=== PATIENT | male | born 1945 | race African-American/Black ===

== ENCOUNTER 2019-07-10 10:48 | Outpatient (CLI) | payer MEDICARE, OTHER, SELFPAY ==
--- NOTE | ~2019-07-10 | XR_ITS ---
MODIFIED ESOPHAGRAM HISTORY: Dysphagia. TECHNIQUE: Modified barium esophagram was performed on 07/10/2019. I administered fluoroscopy and perf ormed the exam with speech pathologist. Patient was seated for lateral fluoroscopic imaging for alondra stion of thin liquids, pudding, solids and quantified amounts, followed by thin liquids an uncontroll ed amounts. This was recorded on tape. A single fluoroscopic spot image was also recorded. The DAP fo r this procedure was 3.5 Gycm2. The amount of fluoroscopy time used during this procedure was 3.6 min utes. FINDINGS: Oral stage: Premature spillage into the pharynx.. Pharyngeal stage: Laryngeal penetration with aspiration as with thin nectar thick liquids which was s ilent. Vallecular residue. Cervical/esophageal stage: Adequate function. IMPRESSION: Oral pharyngeal dysphagia with penetration and aspiration with thin and nectar thick liqu ids. Please correlate with speech pathologist findings and specific feeding recommendations. Reviewed, dictated and finalized at location A. HEAD DUMPER IMPRESSION: Oral pharyngeal dysphagia with penetration and aspiration with thin and nectar thick liquids. Please correlate with speech pathologist findings a nd specific feeding recommendations.
--- NOTE | 2019-07-11 08:02 | STOPEVAL ---
MODIFIED BARIUM SWALLOW EVALUATION: Thank you for referring this patient to [facility]. Admitting Provider: Attending Provider: Servando Larson MD Referring Provider: KATY Outpatient Evaluation Start: 07/10/19 17:54 Freq: Status: Active Protocol: Document 07/10/19 11:00 BECHERERT (Rec: 07/10/19 17:55 BECHERERT [email or web address]) Therapy Assessment Status Assessment Status Assessment Status Evaluation Outpatient Past Medical History Neurological History Hx Cerebrovascular Accident (CVA) Yes Hx Seizures Yes Cardiovascular History Hx Hypercholesterolemia Yes Hx Hypertension Yes Respiratory History Hx Respiratory Disorders No Significant History Gastrointestinal History Hx Gastroesophageal Reflux Disease Yes Hx Gastrointestinal Bleed Yes Genitourinary History Hx Genitourinary Disorders No Significant History Musculoskeletal History Hx Arthritis Yes Hematological History Hx Hematological Disorders No Significant History Endocrine History Hx Endocrine Disorders No Significant History HEENT History Hx HEENT Disorders No Significant History Integumentary History Hx Skin Disorders No Significant History Reproductive History Hx Reproductive Disorders No Significant History Psychosocial History Hx Psychiatric Disorders No Significant History Pain History History of Any Previous or Ongoing No Significant History Instance of Pain Anesthesia History Hx Anesthesia Reactions No Significant History Pain Assessment Timing of Pain Assessment Timing of Pain Assessment Assessment Pain Scale Pain Scale Used Veronica (FACES) Veronica Kaur-Dulce Pain Scale No Pain Pain Score Pain Score No Pain: Vincent Cardona Modified Barium Swallow Evaluation Recent Swallowing History Reports Dysphagia Yes Onset of Dysphagia after CVA's and subsequent seizures History of Related Medical Diagnosis CVA History of Pneumonia No: per pt spouse Reported Difficult Consistencies Thin Liquids Intake Method Prior to Swallow Oral Evaluation Diet Prior to Swallow Evaluation Minced and Moist, Level 5 Liquid Consistency Prior to Swallow Mildly Thick (2) Evaluation Consistency Moderately Thick 5 mL Method of Presentation Spoon Oral Preparatory Symptoms Within Functional Limits Oral Phase Symptoms Within Functional Limits Pharyngeal Phase Symptoms Laryngeal Penetration,Reduced Laryngeal Elevation Severity of Vallecular Residue None - 0% No Residue Severity of Pyriform Sinus Residue None - 0% No Residue 8 Point Laryngeal Penetration-Aspiration Material Enters Airway, Scale Contacts Vocal Folds and i
== END 2019-07-10 10:49 | disposition home or self-care (01) ==
PROVIDERS: PCP Internal Medicine; Visit Provider Psychiatry & Neurology Neurology
DX: R13.10 Dysphagia, unspecified (principal)
CPT/HCPCS: 92611

== ENCOUNTER 2021-12-24 07:35 | Outpatient (CLI) | payer MEDICARE, OTHER, SELFPAY ==
--- NOTE | ~2021-12-24 | XR_ITS ---
EXAMINATION: XR barium swallow modified DATE: 12/24/2021 08:36 INDICATION: Dysphagia. TECHNIQUE: The patient was given barium-containing material of multiple consistencies to swallow by t he speech pathologist while I performed fluoroscopy. Fluoroscopy exposure time was 2.4 minutes. The n umber of fluoroscopy images saved to the PACS was 1. Dose-area product was 1.84 Gy-cm^2. FINDINGS: There is a reduced laryngeal elevation and reduced tongue base retraction. There is vallecular residu e and piriform sinus residue. There is laryngeal penetration and aspiration with thin liquids and nec tar thick liquids. IMPRESSION: 1. Laryngeal penetration and aspiration with thin liquids and nectar thick liquids. 2. Please refer to the speech therapy report for recommendations. Reviewed, dictated and finalized at location A. IMPRESSION: 1. Laryngeal penetration and aspiration with thin liquids and nectar thick liqu ids. 2. Please refer to the speech therapy report for recommendations.
--- NOTE | 2021-12-24 09:18 | STOPEVAL ---
MODIFIED BARIUM SWALLOW STUDY Thank you for referring Kendrick Dominguez to [facility].? I agree with and certify that the following plan of care is medically necessary. Referring Physician Date Attending Provider: Constantino Loya DO Therapy Assessment Status Assessment Status Assessment Status Evaluation Outpatient Past Medical History Neurological History Hx Cerebrovascular Accident (CVA) Yes Hx Seizures Yes Cardiovascular History Hx Hypercholesterolemia Yes Hx Hypertension Yes Gastrointestinal History Hx Gastroesophageal Reflux Disease Yes Hx Gastrointestinal Bleed Yes Musculoskeletal History Hx Arthritis Yes Pain Assessment Timing of Pain Assessment Timing of Pain Assessment Assessment Self Report Self Report Pain Level 0 Pain Score Pain Score 0: Self Report Modified Barium Swallow Evaluation Consistency Mixed Consistency 5 mL Other Amount Several pieces of fruit cocktail coated with the pudding mixture Method of Presentation Spoon Oral Preparatory Symptoms Within Functional Limits Oral Phase Symptoms Reduced A-P Lingual Movement, Slow Oral Transit Pharyngeal Phase Symptoms Residue in Valleculae,Residue/ Pyriform Sinus Severity of Vallecular Residue Moderate - 25-50 % Epiglottic Ligament Covered Severity of Pyriform Sinus Residue Moderate - 25-50 % Up Wall to Half Full 8 Point Laryngeal Penetration-Aspiration Material Does Not Enter Airway Scale Cervical/Esophageal Symptoms Within Functional Limits Solid Consistency 5 mL Other Amount Cracker coated with pudding consistency Method of Presentation Spoon Oral Preparatory Symptoms Within Functional Limits Oral Phase Symptoms Reduced A-P Lingual Movement, Slow Oral Transit Pharyngeal Phase Symptoms Residue in Valleculae,Residue/ Pyriform Sinus Severity of Vallecular Residue Moderate - 25-50 % Epiglottic Ligament Covered Severity of Pyriform Sinus Residue Moderate - 25-50 % Up Wall to Half Full 8 Point Laryngeal Penetration-Aspiration Material Does Not Enter Airway Scale Cervical/Esophageal Symptoms Within Functional Limits Pureed Consistency 3 mL Method of Presentation Spoon Oral Preparatory Symptoms Within Functional Limits Oral Phase Symptoms Reduced A-P Lingual Movement, Slow Oral Transit Pharyngeal Phase Symptoms Residue in Vallec
[2021-12-24 10:13] LABS: Alanine Aminotransferase 23 U/L (6-50); Albumin Level 4.1 g/dL (3.5-5.1); Alkaline Phosphatase 137 U/L (38-126); Anion Gap 12 mmol/L (8-16); Aspartate Amino Transferase 21 U/L (17-59); Bilirubin,Total 0.4 mg/dL (0.2-1.3); Blood Urea Nitrogen 10 mg/dL (9-20); Calcium 9.2 mg/dL (8.4-10.2); Carbon Dioxide 26 mmol/L (22-30); Chloride 104 mmol/L (98-107); Estimated Glomerular Filt Rate > 60; Glucose 126 mg/dL (65-110); Potassium 2.8 mmol/L (3.4-5.0); Sodium 142 mmol/L (137-145)
== END 2021-12-24 07:36 | disposition home or self-care (01) ==
LOC: ANHIMG 07:40
PROVIDERS: PCP Internal Medicine; Visit Provider Internal Medicine
DX: F39 Unspecified mood [affective] disorder (principal); G40.901 Epilepsy, unspecified, not intractable, with status epilepticus; I63.9 Cerebral infarction, unspecified; E55.9 Vitamin D deficiency, unspecified
CPT/HCPCS: 36415; 80053; 92611

== ENCOUNTER 2022-01-16 12:15 | Outpatient (CLI) | payer MEDICARE, OTHER, SELFPAY ==
--- NOTE | ~2022-01-16 | XR_ITS ---
EXAMINATION: XR abdomen obstructive series DATE: 01/16/2022 13:02 INDICATION: Abdominal distention TECHNIQUE: Upright and supine views of the abdomen were obtained. COMPARISON: None. FINDINGS: There is a large volume of stool in the distal colon. There is moderate distention of the p roximal colon. No free intraperitoneal gas is identified. There is a small left pleural effusion. 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 IMPRESSION: 1. Constipation with distended colon. No free intraperitoneal gas identified. Reviewed, dictated and finalized at location A.
== END 2022-01-16 12:16 | disposition home or self-care (01) ==
PROVIDERS: PCP Internal Medicine; Visit Provider Nurse Practitioner
DX: R14.0 Abdominal distension (gaseous) (principal); K59.00 Constipation, unspecified
CPT/HCPCS: 74019

== ENCOUNTER 2022-09-26 13:19 | Emergency (ER) | payer MEDICARE, OTHER, SELFPAY ==
[2022-09-26 13:18] VITALS: BP 141/71; PULSE 64; RESP 18; TEMP 36.6; O2SAT 100
[2022-09-26 14:14] LABS: Basophils Absolute Auto 0.1 K/mm3 (0.0-0.1); Basophils Percent Auto 1.1 % (0.2-1.2); Eosinophils Absolute Auto 0.2 K/mm3 (0-0.3); Eosinophils Percent Auto 3.7 % (0-4.4); Hemoglobin 12.3 g/dL (14.0-18.0); Immature Granulocyte Absolute 0.02 K/mm3 (0.00-0.031); Immature Granulocyte Percent A 0.3 % (0-0.5); Lymphocytes Absolute Auto 2.26 K/mm3 (0.9-3.2); Lymphocytes Percent Auto 36.8 % (18.3-44.2); Mean Corpuscular HGB Conc 32.4 g/dl (32-36); Mean Corpuscular Hemoglobin 29.3 pg (26-34); Mean Corpuscular Volume 90.5 fl (80-100); Mean Platelet Volume 8.8 fl (7.4-10.4); Monocytes Absolute Auto 0.7 K/mm3 (0.1-0.6); Monocytes Percent Auto 10.6 % (2.6-8.5); Neutrophils Absolute Auto 2.9 K/mm3 (1.3-6.7); Neutrophils Percent Auto 47.5 % (45.5-73.1); Platelet Count Result 453 k/mm3 (150-375); Red Cell Distribution Width 14.6 % (11.5-14.5); White Blood Count 6.1 K/mm3 (4.5-10.0)
--- NOTE | 2022-09-26 14:15 | PC.NURSE ---
Wounds to bilateral groins and coccyx cleansed with wound vat cleaner.
[2022-09-26 14:32] LABS: Alanine Aminotransferase 22 U/L (6-50); Albumin Level 3.7 g/dL (3.5-5.1); Alkaline Phosphatase 104 U/L (38-126); Anion Gap 8 mmol/L (8-16); Aspartate Amino Transferase 29 U/L (17-59); Bilirubin,Total 0.4 mg/dL (0.2-1.3); Blood Urea Nitrogen 10 mg/dL (9-20); Calcium 8.4 mg/dL (8.4-10.2); Carbon Dioxide 30 mmol/L (22-30); Chloride 103 mmol/L (98-107); Estimated CRCL calculation 72 ml/min; Estimated Glomerular Filt Rate > 60; Glucose 105 mg/dL (65-110); Potassium 2.8 mmol/L (3.4-5.0); Sodium 141 mmol/L (137-145)
[2022-09-26] MEDS: POTASSIUM CHLORIDE 20 MEQ PACKET (FOR LIQUID) 40 MEQ PO ×2 (14:42→16:41)
--- NOTE | 2022-09-26 16:29 | ED.GENADULT ---
HPI - General Adult General Chief complaint: Unspecified Stated complaint: sores to groin area Time Seen by Provider: 09/26/22 13:21 History of Present Illness HPI narrative: Patient is a 77-year-old male who presents ER for evaluation of skin in his pelvic region. Patient has had a stroke and is bedbound. He lives at home with his diaper often will void and family will clean him up. They use a fan to try to keep him dry. Patient had some infection several weeks ago while hospitalized at [facility] and since then family has been caring for him. They have been using [employer]de[employer]'s Butt paste as well as a monkey powder and occasional baking soda water cleanses. There is post have home health set up in the next week through the PCP but came here to make sure there is not something more serious occurring. There is no other complaints at this time. Patient has been without fevers. History obtained from . Related Data Home Medications Medication Instructions Recorded Confirmed aspirin 81 mg chewable tablet 81 mg PO DAILY 05/08/19 07/13/22 polyethylene glycol 3350 17 17 gm PO DAILY 11/06/19 07/13/22 gram/dose oral powder (Miralax) Allergies Allergy/AdvReac Type Severity Reaction Status Date / Time pravastatin Allergy Severe LEG Verified 09/24/22 15:50 SWELLING lisinopril Allergy Intermediate angioedema Verified 09/24/22 15:50 Review of Systems Review of Systems: ROS unobtainable: Yes unobtainable due to medical condition PMFSH Past Medical History Medical History Arthritis CVA (cerebral vascular accident) X2 in 2017. Residual aphasia and right hemiplegia. Patient is able to feed himself but otherwise requires total care, including a Mariama lift at home. 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 Christianson. Renal disease Seizures Developed after his strokes. Surgical History Surgical History History of inguinal hernia repair Right inguinal herniorrhaphy September 2016. History of nephrectomy Partial right nephrectomy for papillary renal cell carcinoma March 14, 2018. Status post trigger finger release Right 3rd finger. Family History Family History Other Unknown family medical history Social History Social History Social History: The patient lives with his and 2 children in [place]. 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 His is his surrogate decision maker and he is listed as a full code. He retired after being in the [employer] for 27 years. He worked in security thereafter. Smoking status: Never smoker Second hand tobacco smoke exposure: No Alcohol intake: never Substance use: never Substance use type: does not use Spiritual care concerns: No Exam Narrative: GENERAL: Chronically ill-appearing, well-nourished, and in no acute distress. HEAD: Normocephalic, atraumatic. ENT: Mucous membranes moist. CHEST: Clear to auscultation. No respiratory distress. HEART: Regular rate and rhythm. Normal peripheral pulses. EXTREMITIES: Right hemiplegia, no deformity. SKIN: Warm, dry. Thickening of the skin in the inguinal creases consistent with chronic dermatitis and there is some small less than dime sized pink ulcerations that do not appear to be infected. No cellulitis. There is a lot of caked powder to this region as well as to the patient's back where he may have some additional seborrheic dermatitis plaques on the left side. NEURO: Awake and alert, at neurologic baseline, says yes and no. Course Course Emergency
[2022-09-26 16:58] VITALS: BP 146/67; PULSE 73; RESP 14; O2SAT 100
--- NOTE | 2022-09-26 17:47 | PC.NURSE ---
[facility] Private residence transport [id number] Declined-No Truck 17[address] [facility] Declined - No Truck [address] [facility] Ems accepted ETA 21p Trip#[id number]
== END 2022-09-26 19:25 | disposition home or self-care (01) ==
PROVIDERS: Emergency Provider Emergency Medicine; PCP Family Medicine
DX: L30.9 Dermatitis, unspecified (principal); E87.6 Hypokalemia; I69.920 Aphasia following unspecified cerebrovascular disease; I69.951 Hemiplegia and hemiparesis following unspecified cerebrovascular disease affecting right dominant side; E78.00 Pure hypercholesterolemia, unspecified; I10 Essential (primary) hypertension; N28.9 Disorder of kidney and ureter, unspecified; G47.33 Obstructive sleep apnea (adult) (pediatric); H40.9 Unspecified glaucoma; K21.9 Gastro-esophageal reflux disease without esophagitis; M19.90 Unspecified osteoarthritis, unspecified site; Z85.528 Personal history of other malignant neoplasm of kidney; Z87.442 Personal history of urinary calculi; Z90.5 Acquired absence of kidney; Z79.82 Long term (current) use of aspirin
CPT/HCPCS: 36415; 80053; 85025; 99283; A9270

== ENCOUNTER 2022-10-12 10:37 | Outpatient (NON) | payer MEDICARE, OTHER, SELFPAY ==
[2022-10-12 10:53] LABS: Basophils Absolute Auto 0.1 K/mm3 (0.0-0.1); Basophils Percent Auto 1.3 % (0.2-1.2); Eosinophils Absolute Auto 0.3 K/mm3 (0-0.3); Eosinophils Percent Auto 4.5 % (0-4.4); Hematocrit 43.7 % (42.0-52.0); Hemoglobin 13.9 g/dL (14.0-18.0); Immature Granulocyte Absolute 0.01 K/mm3 (0.00-0.031); Immature Granulocyte Percent A 0.2 % (0-0.5); Lymphocytes Absolute Auto 2.27 K/mm3 (0.9-3.2); Lymphocytes Percent Auto 38.2 % (18.3-44.2); Mean Corpuscular HGB Conc 31.8 g/dl (32-36); Mean Corpuscular Hemoglobin 28.7 pg (26-34); Mean Corpuscular Volume 90.3 fl (80-100); Mean Platelet Volume 9.5 fl (7.4-10.4); Monocytes Absolute Auto 0.5 K/mm3 (0.1-0.6); Monocytes Percent Auto 7.9 % (2.6-8.5); Neutrophils Absolute Auto 2.9 K/mm3 (1.3-6.7); Neutrophils Percent Auto 47.9 % (45.5-73.1); Platelet Count Result 259 k/mm3 (150-375); Red Blood Count 4.84 M/mm3 (4.6-6.20); Red Cell Distribution Width 14.9 % (11.5-14.5)
[2022-10-12 11:18] LABS: Alanine Aminotransferase 21 U/L (6-50); Albumin Level 3.8 g/dL (3.5-5.1); Alkaline Phosphatase 122 U/L (38-126); Anion Gap 4 mmol/L (8-16); Aspartate Amino Transferase 27 U/L (17-59); Bilirubin,Total 0.5 mg/dL (0.2-1.3); Blood Urea Nitrogen 11 mg/dL (9-20); Calcium 8.7 mg/dL (8.4-10.2); Carbon Dioxide 32 mmol/L (22-30); Chloride 102 mmol/L (98-107); Estimated Glomerular Filt Rate > 60; Glucose 80 mg/dL (65-110); Magnesium 2.4 mg/dL (1.6-2.3); Potassium 4.1 mmol/L (3.4-5.0); Sodium 138 mmol/L (137-145)
== END 2022-10-12 10:38 | disposition home or self-care (01) ==
LOC: HOME HLTH 10:40
PROVIDERS: PCP Family Medicine; Visit Provider Family Medicine
DX: L30.9 Dermatitis, unspecified (principal); I69.351 Hemiplegia and hemiparesis following cerebral infarction affecting right dominant side; E87.6 Hypokalemia; I10 Essential (primary) hypertension
CPT/HCPCS: 80053; 83735; 84100; 85025

== ENCOUNTER 2023-11-20 13:11 | Emergency (ER) | payer MEDICARE, OTHER, SELFPAY ==
[2023-11-20] VITALS (7 sets, daily range): BP systolic 136–148; BP diastolic 58–63; PULSE 70–87; RESP 17–20; TEMP 36.9; O2SAT 98–100
--- NOTE | ~2023-11-20 | XR_ITS ---
EXAMINATION: XR chest 1V DATE: 11/20/2023 15:09 INDICATION: Seizure. TECHNIQUE: A single frontal view of the chest was obtained. COMPARISON: Chest single view 05/08/2019 FINDINGS: There is mild atelectasis in the lower lung zones. No pleural effusion or pneumothorax. The heart size is normal. There is an electronic device in left anterior chest wall. IMPRESSION: 1. Mild atelectasis in the lower lung zones. Reviewed, dictated and finalized at location E.
--- NOTE | ~2023-11-20 | CT_ITS ---
EXAMINATION: CT brain wo con DATE: 11/20/2023 15:06 INDICATION: Seizure. TECHNIQUE: Computed tomography (CT) of the head was performed without intravenous contrast. The mA wa s adjusted according to patient size. Iterative reconstruction technique was employed. The dose-lengt h product was 605.33 mGy-cm. COMPARISON: Head CT 05/08/2019 FINDINGS: There is chronic encephalomalacia involving left frontotemporoparietal region, left insula, and the left basal ganglia and left thalamus. There is no intracranial hemorrhage, acute infarction, or abnormal intracranial mass lesion. There is ex vacuo dilatation of left lateral ventricle. There is mild mucosal thickening in the paranasal sinuses. The orbits are normal. The mastoid air cells are normal. There is cerumen in left external auditory canal. IMPRESSION: 1. Large old infarct in the expected distribution of left middle cerebral artery. Reviewed, dictated and finalized at location E. IMPRESSION: 1. Large old infarct in the expected distribution of left middle cerebral arter y.
--- NOTE | 2023-11-20 13:28 | ECG_ITS ---
Test Date: 2023-11-20 13:37:44 Measurements Intervals [place] Rate: 68 P: 22 MO: 183 QRS: 30 QRSD: 85 T: 198 QT: 434 QTc: 462 Interpretive Statements SINUS RHYTHM WITH SINUS ARRHYTHMIA ST DEVIATION AND MARKED T-WAVE ABNORMALITY, CONSIDER ANTEROLATERAL ISCHEMIA [-0.5+ mV T WAVE IN I/aVL/V3-V6] ST DEVIATION AND MODERATE T-WAVE ABNORMALITY, CONSIDER INFERIOR ISCHEMIA [-0.1+ mV T WAVE IN II/aVF] No previous ECG available for comparison Electronically Signed On 11-20-2023 16:19:06 CDT by Van Mccormack M.D.
[2023-11-20 13:48] LABS: Basophils Percent Auto 0.4 % (0.2-1.2); Eosinophils Absolute Auto 0.2 K/mm3 (0-0.3); Eosinophils Percent Auto 2.5 % (0-4.4); Hematocrit 39.9 % (42.0-52.0); Hemoglobin 13.3 g/dL (14.0-18.0); Immature Granulocyte Absolute 0.02 K/mm3 (0.00-0.031); Immature Granulocyte Percent A 0.3 % (0-0.5); Lymphocytes Absolute Auto 1.67 K/mm3 (0.9-3.2); Lymphocytes Percent Auto 23.3 % (18.3-44.2); Mean Corpuscular HGB Conc 33.3 g/dl (32-36); Mean Corpuscular Hemoglobin 30.8 pg (26-34); Mean Corpuscular Volume 92.4 fl (80-100); Monocytes Absolute Auto 0.4 K/mm3 (0.1-0.6); Monocytes Percent Auto 5.6 % (2.6-8.5); Neutrophils Absolute Auto 4.9 K/mm3 (1.3-6.7); Neutrophils Percent Auto 67.9 % (45.5-73.1); Platelet Count Result 270 k/mm3 (150-375); Red Blood Count 4.32 M/mm3 (4.6-6.20); Red Cell Distribution Width 14.6 % (11.5-14.5); White Blood Count 7.2 K/mm3 (4.5-10.0)
[2023-11-20 13:59] LABS: Lactic Acid Reflex 3.7 mmol/L (0.7-2.0)
--- NOTE | 2023-11-20 14:25 | ED.GENADULT ---
HPI - General Adult General Chief complaint: Seizure Stated complaint: seizure Time Seen by Provider: 11/20/23 14:06 Source: family and EMS Mode of arrival: EMS Limitations: other (aphasia due to history of CVA) History of Present Illness HPI narrative: this is a 78-year-old male that presents to the emergency department for a seizure today. Patient with history of CVA and has seizures due to this. He takes 1500 mg of Keppra twice a day. His neurologist is Dr. Larson. He has been taking his anti epileptic. No recent changes to his dose. Patient's reports she was changing him as he had just had a bowel movement. He started to tense up and was not responding to her. This lasted for about 5-10 minutes. Reports this is typically what his seizures are like. Related Data Home Medications Medication Instructions Recorded Confirmed aspirin 81 mg chewable tablet 81 mg PO DAILY 05/08/19 07/13/22 polyethylene glycol 3350 17 17 g PO DAILY PRN 11/01/22 gram/dose oral powder (Miralax) Allergies Allergy/AdvReac Type Severity Reaction Status Date / Time pravastatin Allergy Severe LEG Verified 08/04/23 14:46 SWELLING lisinopril Allergy Intermediate angioedema Verified 08/04/23 14:46 Review of Systems Review of Systems: ROS unobtainable: Yes unobtainable due to medical condition [facility] Past Medical History Medical History Arthritis CVA (cerebral vascular accident) X2 in 2018. Residual aphasia and right hemiplegia. Patient is able to feed himself but otherwise requires total care, including a Mariama lift at home. 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 Christianson. Renal disease Seizures Developed after his strokes. Surgical History Surgical History History of inguinal hernia repair Right inguinal herniorrhaphy September 2016. History of nephrectomy Partial right nephrectomy for papillary renal cell carcinoma March 14, 2018. Status post trigger finger release Right 3rd finger. Family History Family History Other Unknown family medical history Social History Social History Social History: The patient lives with his and 2 children in [place]. 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 His is his surrogate decision maker and he is listed as a full code. He retired after being in the [employer] for 27 years. He worked in security thereafter. Smoking status: Never smoker Second hand tobacco smoke exposure: No Alcohol intake: never Substance use: never Substance use type: does not use Spiritual care concerns: No Exam Narrative: GENERAL: Elderly, well-nourished, and in no acute distress. HEAD: Normocephalic, atraumatic. EYES: PERRLA and EOMI. ENT: Nares clear, no rhinorrhea or epistaxis. Mucous membranes moist. Oropharynx without tonsillar hypertrophy exudate or other lesions. Bilateral TMs pearly martinez non-bulging NECK: Supple. No adenopathy or masses. CHEST: Clear to auscultation. No respiratory distress. No wheezes rales or rhonchi HEART: Regular rate and rhythm. No murmur heard. Normal peripheral pulses. ABDOMEN: Soft, nontender, nondistended, normal active bowel sounds. EXTREMITIES: Normal range of motion. No edema. SKIN: Warm, dry, no rash. Stage 1 sacral decubitus ulcer without erythema NEURO: Alert and oriented x1. Will follow some commands. Hemiplegia PSYCH: Normal mood and affect Course Course Emergency Course: Patient and family updated on workup and agree with plan of care Consultations Consultation #1:
[2023-11-20 14:27] LABS: Appearance Urine Clear (Clear); Bacteria Urine None Seen /hpf; Bilirubin Urine Negative (Negative); Blood Urine 2+ (Negative); Color Urine Yellow (Yellow); Glucose Urine UA Negative (Negative); Granular Casts Urine Present /lpf; Ketones Urine Negative (Negative); Leukocyte Esterase Ur Negative LEU/UL (Negative); Nitrate Urine Negative (Negative); Non Pathogenic Casts 0-2; Protein Urine 1+ mg/dL (Negative); RBC Urine 21-50 /hpf (0-2); Specific Grav Ur 1.014 (1.001-1.035); Squamous Epithelial Cell Urine None Seen /hpf (Few); WBC Urine 0-5 /hpf (0-3); pH Urine 6.5 (5.0-9.0)
[2023-11-20 14:29] LABS: Add Urine Microscopic? YES
[2023-11-20 15:07] LABS: INR 1.2; Prothrombin Time 15.2 Seconds (11.1-14.7)
[2023-11-20 15:08] LABS: Partial Thromboplastin Time 28.5 Seconds (22.3-36.8)
[2023-11-20 15:10] LABS: Alanine Aminotransferase 25 U/L (6-50); Albumin Level 4.2 g/dL (3.5-5.1); Alkaline Phosphatase 146 U/L (38-126); Anion Gap 8 mmol/L (4-12); Aspartate Amino Transferase 30 U/L (17-59); Bilirubin,Total 0.7 mg/dL (0.2-1.3); Blood Urea Nitrogen 12 mg/dL (9-20); Calcium 8.7 mg/dL (8.4-10.2); Carbon Dioxide 30 mmol/L (22-30); Chloride 104 mmol/L (98-107); Estimated CRCL calculation 58 ml/min; Estimated Glomerular Filt Rate > 60; Glucose 128 mg/dL (65-110); Magnesium 2.1 mg/dL (1.6-2.3); Potassium 3.9 mmol/L (3.4-5.0); Sodium 142 mmol/L (137-145)
[2023-11-20] MEDS: SODIUM CHLORIDE 0.9% IV 500 ML 999 ML IV CONT (15:19)
[2023-11-20 16:46] LABS: Reflex Lactic Acid Yes or No Add Lactic
[2023-11-20] MEDS: levETIRAcetam 1000MG/NACL100ML 1,000 MG/100 ML BAG 400 MG IVPB (17:02)
[2023-11-20 17:12] LABS: Lactic Acid 1.8 mmol/L (0.7-2.0)
== END 2023-11-20 20:00 | disposition home or self-care (01) ==
PROVIDERS: Emergency Medicine; Emergency Provider Physician Assistant; PCP Family Medicine
DX: I69.398 Other sequelae of cerebral infarction (principal); G40.802 Other epilepsy, not intractable, without status epilepticus; L89.151 Pressure ulcer of sacral region, stage 1; I69.320 Aphasia following cerebral infarction; I69.351 Hemiplegia and hemiparesis following cerebral infarction affecting right dominant side; I10 Essential (primary) hypertension; E78.00 Pure hypercholesterolemia, unspecified; H40.9 Unspecified glaucoma; K21.9 Gastro-esophageal reflux disease without esophagitis; G47.33 Obstructive sleep apnea (adult) (pediatric); Z85.528 Personal history of other malignant neoplasm of kidney; Z87.442 Personal history of urinary calculi; Z90.5 Acquired absence of kidney; Z79.82 Long term (current) use of aspirin; Z79.899 Other long term (current) drug therapy; R94.31 Abnormal electrocardiogram [ECG] [EKG]
CPT/HCPCS: 36415; 70450; 71045; 80053; 81001; 83605; 83735; 85025; 85610; 85730; 93005; 96361; 96374; 99284; J1953; J7040

== ENCOUNTER 2024-04-11 11:55 | Outpatient (CLI) | payer MEDICARE, OTHER, SELFPAY ==
--- NOTE | ~2024-04-11 | XR_ITS ---
CHEST RADIOGRAPH, PA AND LATERAL CLINICAL HISTORY: R05.9 - Cough . COMPARISON: 11/20/2023 TECHNIQUE: PA and lateral views of the chest. FINDINGS Loop recorder projecting to the left of midline. The remainder of the cardiomediastinal silhouette is otherwise unremarkable. Blunting of the left costophrenic sulcus suggesting a small left-sided pleural effusion. The remainder of the lungs are clear. Visualized osseous structures and soft tissues are unremarkable. IMPRESSION: Left-sided pleural effusion without focal infiltrate. Reviewed, dictated and finalized at location A. OPATHOLOGIST
[2024-04-11 13:06] LABS: Hemoglobin A1C 5.5 % (<5.7)
== END 2024-04-11 11:56 | disposition home or self-care (01) ==
LOC: ANHIMG 12:02
PROVIDERS: PCP Family Medicine; Visit Provider Family Medicine
DX: J90 Pleural effusion, not elsewhere classified (principal); R73.9 Hyperglycemia, unspecified
CPT/HCPCS: 36415; 71046; 83036